=== PATIENT | male | born 1990 | race Caucasian/White ===

== ENCOUNTER 2022-05-10 21:22 | Emergency (ER) | payer MEDICAID, OTHER ==
[~2022-05-10] VITALS: Ht 182.9 cm; Wt 72.6 kg
--- NOTE | 2022-05-10 21:59 | NUR ---
BIBRA 61 FOR OD ON FENTANYL. REC'D 2 X 4MG OF NARCA IN [employer]. PT A/OX3. TOLERATING R/A WELL WITH NO RESP DISTRESS. CONNECTED PT TOP POX AND MONITOR. SAFETY MEASURES IN PLACE.
[2022-05-10] MEDS ORDERED: NALO1DIS2 IM (22:42)
--- NOTE | 2022-05-10 23:53 | NUR ---
Patient discharged to home in stable condition. Written and verbal after care instructions given. Patient verbalizes understanding of instruction. pt ambulatory with a steady gait
[2022-05-10 23:54] VITALS: BP 112/89
== END 2022-05-10 23:54 | disposition home or self-care (01) ==
LOC: ER 21:23
DX: T40.411A Poisoning by fentanyl or fentanyl analogs, accidental (unintentional), initial encounter (principal); Z79.899 Other long term (current) drug therapy; Y92.89 Other specified places as the place of occurrence of the external cause